=== PATIENT | female | born 1945 | race Caucasian/White ===

== ENCOUNTER 2019-03-25 12:35 | Outpatient (CLI) | payer MEDICARE, SELFPAY ==
--- NOTE | 2019-03-25 13:00 | MR_ITS ---
WS: [id number] MRI LEFT SHOULDER NONCONTRAST TECHNIQUE: Sagittal T2, coronal T1, T2 and proton density imaging. Axial gradient PDE imaging. CLINICAL INFORMATION: shoulder pain COMPARISON: None. FINDINGS: Moderate degenerative arthritis AC joint with mild downsloping of the acromion. Slight subacromial sp urring. Slight impingement on the musculotendinous junction. Tendinopathy in the distal supraspinatus . Tiny insertional tear at the supraspinatus insertion. Small insertional tear at the infraspinatus i nsertion. Tendinopathy in the infraspinatus distally. Normal teres minor. Normal subscapularis. Normal biceps tendon in the bicipital groove. Normal biceps labral anchor. Glenoid labrum appears grossly intact. MR/MR shoulder LT wo con* [id number] IMPRESSION: 1. Moderate degenerative arthritis at the AC joint with edema and a small amou nt of subacromial/subdeltoid fluid. Mild downsloping of the acromion with subac romial spurring. 2. Small insertional tears involving the distal supraspinatus and infraspinatu s with tendinopathy. 3. Rotator cuff is otherwise unremarkable. 4. Normal biceps tendon in the bicipital groove. 5. Glenoid labrum appears grossly normal.
== END 2019-03-25 12:36 | disposition home or self-care (01) ==
LOC: RADSHAW 12:39
PROVIDERS: Family Provider Family Medicine; PCP Family Medicine; Visit Provider Orthopaedic Surgery
DX: M19.012 Primary osteoarthritis, left shoulder (principal); M75.102 Unspecified rotator cuff tear or rupture of left shoulder, not specified as traumatic
CPT/HCPCS: 73221

== ENCOUNTER → 2019-06-20 10:31 | Outpatient (BNVA) | payer MEDICARE, SELFPAY | PROVIDERS: Family Provider Family Medicine; PCP Family Medicine; Referring Provider Family Medicine; Visit Provider Family Medicine | DX: E87.6 Hypokalemia (principal) | CPT/HCPCS: 80048 ==

== ENCOUNTER → 2019-11-28 09:49 | Outpatient (BNVA) | payer MEDICARE, SELFPAY | PROVIDERS: Family Provider Family Medicine; PCP Family Medicine; Visit Provider Family Medicine | DX: Z86.39 Personal history of other endocrine, nutritional and metabolic disease (principal); M75.42 Impingement syndrome of left shoulder; E78.00 Pure hypercholesterolemia, unspecified; Z68.26 Body mass index [BMI] 26.0-26.9, adult | CPT/HCPCS: 80053; 80061; 85025 ==

== ENCOUNTER → 2020-07-10 09:07 | Outpatient (BNVA) | payer MEDICARE, SELFPAY | PROVIDERS: Family Provider Family Medicine; PCP Family Medicine; Visit Provider Family Medicine | DX: M75.102 Unspecified rotator cuff tear or rupture of left shoulder, not specified as traumatic (principal); D72.819 Decreased white blood cell count, unspecified; E87.6 Hypokalemia; I10 Essential (primary) hypertension | CPT/HCPCS: 80048; 85025 ==

== ENCOUNTER → 2021-02-11 09:27 | Outpatient (BNVA) | payer MEDICARE, SELFPAY | PROVIDERS: Family Provider Family Medicine; PCP Family Medicine; Visit Provider Family Medicine | DX: E87.6 Hypokalemia (principal) | CPT/HCPCS: 80048 ==

== ENCOUNTER → 2021-12-02 09:11 | Outpatient (BNVA) | payer MEDICARE, SELFPAY | PROVIDERS: Family Provider Family Medicine; PCP Family Medicine; Visit Provider Family Medicine | DX: I10 Essential (primary) hypertension (principal) | CPT/HCPCS: 80053; 85025 ==

== ENCOUNTER → 2022-03-10 09:42 | Outpatient (BNVA) | payer BC, SELFPAY | PROVIDERS: Family Provider Family Medicine; PCP Family Medicine; Visit Provider Family Medicine | DX: E87.6 Hypokalemia (principal) | CPT/HCPCS: 80053 ==

== ENCOUNTER → 2022-10-06 12:17 | Outpatient (BNVA) | payer BC, SELFPAY | PROVIDERS: Family Provider Family Medicine; PCP Family Medicine; Visit Provider Family Medicine | DX: E87.6 Hypokalemia (principal); E80.6 Other disorders of bilirubin metabolism | CPT/HCPCS: 80053 ==

== ENCOUNTER → 2023-01-28 11:11 | Outpatient (BNVA) | payer BC, SELFPAY | PROVIDERS: Family Provider Family Medicine; PCP Family Medicine; Visit Provider Family Medicine | DX: M19.90 Unspecified osteoarthritis, unspecified site (principal); E87.6 Hypokalemia; R74.8 Abnormal levels of other serum enzymes; M75.102 Unspecified rotator cuff tear or rupture of left shoulder, not specified as traumatic; E80.6 Other disorders of bilirubin metabolism | CPT/HCPCS: 80053 ==

== ENCOUNTER 2023-02-03 09:18 | Outpatient (CLI) | payer BC, SELFPAY ==
--- NOTE | 2023-02-03 09:45 | US_ITS ---
WS: [id number] ULTRASOUND ABDOMEN CLINICAL INFORMATION: progressive increase in bilirubin p year COMPARISON: None. FINDINGS: Liver Size: Normal. Craniocaudal length: 12.6 cm. Echogenicity: Coarse surface nodularity: None. Mass (size and location): None. Bile ducts Intrahepatic ducts: Normal. Common bile duct diameter: 0.3 cm. Gallbladder Prior cholecystectomy. Pancreas Normal as visualized. Spleen Splenomegaly: None. Craniocaudal length: 9.3 cm. Right kidney: Normal. Hydronephrosis: None. Size: 9.2 cm x 5.2 cm x 4.7 cm Left kidney: Normal. Hydronephrosis: None. Size: 9.1 cm x 3.8 cm x 4.4 cm. Abdominal aorta and IVC Visualized portions are normal. Ascites: None. IMPRESSION: 1. Prior cholecystectomy. 2. Mild diffuse fatty infiltration of the liver. 3. No hydronephrosis in either kidney
== END 2023-02-03 09:19 | disposition home or self-care (01) ==
LOC: RAD 09:18
PROVIDERS: Family Provider Family Medicine; PCP Family Medicine; Visit Provider Family Medicine
DX: E80.6 Other disorders of bilirubin metabolism (principal); Z90.49 Acquired absence of other specified parts of digestive tract; K76.0 Fatty (change of) liver, not elsewhere classified
CPT/HCPCS: 76700

== ENCOUNTER → 2023-05-05 08:58 | Outpatient (BNVA) | payer BC, SELFPAY | PROVIDERS: Family Provider Family Medicine; PCP Family Medicine; Visit Provider Family Medicine | DX: E80.6 Other disorders of bilirubin metabolism (principal); I10 Essential (primary) hypertension; M75.42 Impingement syndrome of left shoulder | CPT/HCPCS: 80053; 85025; 86705; 86706; 86709; 86803; 87340 ==

== ENCOUNTER → 2023-09-07 08:55 | Outpatient (BNVA) | payer BC, SELFPAY | PROVIDERS: Family Provider Family Medicine; PCP Family Medicine; Visit Provider Family Medicine | DX: E80.6 Other disorders of bilirubin metabolism (principal); E87.6 Hypokalemia | CPT/HCPCS: 80053 ==

== ENCOUNTER → 2024-03-08 10:09 | Outpatient (BNVA) | payer MEDICARE, MEDICAID, SELFPAY | PROVIDERS: Family Provider Family Medicine; PCP Family Medicine; Visit Provider Family Medicine | DX: I10 Essential (primary) hypertension (principal); E80.6 Other disorders of bilirubin metabolism; E87.6 Hypokalemia | CPT/HCPCS: 80053; 85025 ==

== ENCOUNTER 2024-07-05 11:25 | Outpatient (CLI) | payer MEDICARE, MEDICAID, SELFPAY ==
--- NOTE | 2024-07-05 12:00 | USCV_ITS ---
Chaenl Casillas Age: 79 Gender: F : 1945 Exam Date: 07/05/2024 12:11 Ordering Phys: Anuradha Navas MD Technologist: Exam Location: [facility] [place] Indication: afib sob cp BP: / HR: 84 Rhythm: Sinus Technical Quality: MEASUREMENTS (Male / Female) Normal Values 2D ECHO LV Diastolic Diameter PLAX 4.2 cm 4.2 - 5.9 / 3.9 - 5.3 cm IVS Diastolic Thickness 1.1 cm 0.6 - 1.0 / 0.6 - 0.9 cm IVS Systolic Thickness 1.6 cm LVPW Diastolic Thickness 1.3 cm 0.6 - 1.0 / 0.6 - 0.9 cm LVPW Systolic Thickness 1.3 cm LVOT Diameter 2.0 cm LV Ejection Fraction 2D Teich 69.8 % LV Ejection Fraction MOD 4C 60.8 % LV Ejection Fraction MOD 2C 73.1 % LV Ejection Fraction 2C AL 73.4 % LA Diameter 3.3 cm RA Systolic Volume 4C AL 11.0 ml RA Systolic Volume 4C MOD 10.7 ml Aorta at Sinotubular Diameter 2.6 cm IVC Diameter 2.0 cm M-MODE LA Ao Ratio MM 1.2 AV Cusp Separation MM 2.1 cm DOPPLER AV Peak Velocity 135.0 cm/s LVOT Peak Velocity 98.0 cm/s AV Area Cont Eq vti 2.3 cm squared AV Area Cont Eq pk 2.3 cm squared MV Area PHT 4.7 cm squared TV Peak Velocity 180.0 cm/s TR Peak Velocity 193.0 cm/s TR Peak Gradient 14.9 mmHg TV Peak E Velocity 83.0 cm/s PV Peak Velocity 95.0 cm/s FINDINGS Left Ventricle Left ventricle is normal size. LV systolic function is normal with EF of 60-65%. No regional wall motion abnormalities are seen. Grade 1 diastolic dysfunction. Right Ventricle Normal in size and function Right Atrium Normal in size Left Atrium Normal in size Mitral Valve Structurally normal mitral valve. Mild mitral regurgitation Aortic Valve Structurally normal aortic valve. No significant stenosis or regurgitation. Tricuspid Valve Mild tricuspid regurgitation. Insufficient TR jet to calculate RVSP Pulmonic Valve Not well-visualized Pericardium Normal Aorta Normal in size IVC Not well visualized CONCLUSIONS LV systolic function is normal with EF of 60-65%. Grade 1 diastolic dysfunction. Mild mitral regurgitation Mild tricuspid regurgitation No comparison studies are available. Ran Oneal MD (Electronically Signed) Final Date: 10 Jul 2024 15:09 S
== END 2024-07-05 11:26 | disposition home or self-care (01) ==
PROVIDERS: Family Provider Family Medicine; PCP Family Medicine; Visit Provider Family Medicine
DX: R07.9 Chest pain, unspecified (principal); R94.31 Abnormal electrocardiogram [ECG] [EKG]; I34.0 Nonrheumatic mitral (valve) insufficiency; I07.1 Rheumatic tricuspid insufficiency
CPT/HCPCS: 93306

== ENCOUNTER → 2024-07-14 10:09 | Outpatient (BNVA) | payer MEDICARE, MEDICAID, SELFPAY | PROVIDERS: Family Provider Family Medicine; PCP Family Medicine; Visit Provider Internal Medicine | DX: R07.89 Other chest pain (principal); I10 Essential (primary) hypertension; R07.9 Chest pain, unspecified | CPT/HCPCS: 93005; 99204 ==

== ENCOUNTER 2024-07-22 08:04 | Outpatient (CLI) | payer MEDICARE, SELFPAY ==
--- NOTE | 2024-07-22 08:40 | ECG_ITS ---
[facility] Date: 2024-07-22 Pat Name: Chanel Casillas Department: Room: Gender: Female Communication Spec: : 1945 Requested By: Ran Oneal Order Number: [id number] Blanka MD: CHINMAY LUQUE Interpretive Statements Lung unchanged pre/post procedure; Intraprocedure shortess of breath; Symptoms resoled by discharge NOTE: Please note that this is the electrocardiogram portion of the Lexiscan/Sestamibi stress test. The perfusion scan will be documented separately. DATA: Baseline heart rate was 72 beats per minute. Baseline blood pressure was 133/101 millimeters of mercury. Target heart rate was 139. Maximum heart rate achieved was 100. which was 71% of the predicted target heart rate. Maximum blood pressure was 165/101 millimeters of mercury. The reason for ending the test was completion of the protocol. The patient did not experience any symptoms. ELECTROCARDIOGRAM: BASELINE: Sinus rhythm. Left axis. Right bundle branch block' no arrhythmia noted. EXERCISE: After Lexiscan injection, no ST-T changes suggestive of ischemic noted. No arrhythmia noted. CONCLUSION: Please note due to baseline abnormality of the EKG specificity and sensitivity of the EKG portion of LexiScan MIBI stress test will be low 1. EKG not suggestive of ischemia 2. Lexiscan injection unremarkable. 3. Perfusion scan will be documented separately. Electronically Signed On 07-30-2024 23:22:03 CDT by CHINMAY LUQUE [email or web address]
--- NOTE | 2024-07-22 08:44 | NMCV_ITS ---
NM iris perf SPECT r/s* [id number] Chanel Casillas Age: 79 Gender: F : 1945 Exam Date: 07/22/2024 09:27 Ordering Phys: Ran Oneal M.D ([email or web address]) Technologist: CONSTANCE Macdonald Exam Location: [facility] Indications: CP STRESS TEST Please see separate stress test report in [facility] for full findings IMAGE PROTOCOL Rest/Stress 1 Lexiscan Day Radiopharmaceutical Dose (mCi) Administration Site Administered by Rest: Tc-99m 10.8 IV CONSTANCE Macdonald Sestamibi Stress:Tc-99m 32.4 IV Soraya Haq, STOCK PLAN ADMINISTRATOR Sestamibi Rest: 22-Jul-2024 60 Discovery 630 Stress: 22-Jul-2024 30 Discovery 630 0.4mg Lexiscan. Images obtained in supine and prone position. SPECT RESULTS Technical Quality: Good Raw Data Analysis: Normal Image Corrections: No attenuation or motion correction applied Summed Stress Score: 9 Summed Rest Score: 4 Summed Difference Score: 5 PERFUSION FINDINGS Medium size area of moderate reversibility noted in basal to distal inferior and inferolateral wall suffestive of possible lesion in RCA or dominant Lcx territory. FUNCTIONAL RESULTS (calculated via Gated SPECT) Stress Image LV EF (%): 86 Stress EDV (mL):51 TID: 1 Stress ESV (mL):7 FUNCTIONAL FINDINGS: There is normal left ventricular systolic function. IMPRESSIONS Medium size area of moderate reversibility noted in basal to distal inferior and inferolateral wall suffestive of possible lesion in RCA or dominant Lcx territory. Magi Silva MD (Electronically Signed) Final Date: 29 July 2024 19:08 S
[2024-07-22 08:45] VITALS: BMI 24.7
[2024-07-22] MEDS: regadenoson 0.4 Mg/5 ml Syringe IVP (10:06)
[2024-07-22 10:25] VITALS: BP 125/70; PULSE 81
== END 2024-07-22 08:05 | disposition home or self-care (01) ==
PROVIDERS: PCP Family Medicine; Visit Provider Internal Medicine
DX: R07.9 Chest pain, unspecified (principal); R93.1 Abnormal findings on diagnostic imaging of heart and coronary circulation
CPT/HCPCS: 36415; 78452; 93017; 96374; A9500; J2785

== ENCOUNTER 2024-08-04 07:30 | Outpatient (CLI) | payer MEDICARE, SELFPAY ==
[2024-08-04 08:14] LABS: Basophils % 1.1 %; Eosinophils % 1.1 %; Hematocrit 42.9 % (36-47); Lymphocytes # 1.6 10^3/uL (0.8-4.8); Lymphocytes % 42.5 %; Mean Corpuscular HGB Conc 33.1 g/dL (30-55); Mean Corpuscular Hemoglobin 32.8 pg (27-33); Mean Corpuscular Volume 99.1 fl (85-98); Mean Platelet Volume 10.1 fL (7.4-10.4); Monocytes # 0.3 10^3/uL (0.2-0.9); Monocytes % 8.1 %; Neutrophils # 1.73 10^3/uL (1.8-7.7); Neutrophils % 46.9 %; Nucleated Red Blood Cells % 0 %; Platelet Count 225 10^3/cmm (157-399); Red Blood Count 4.33 10^6/uL (3.85-5.65); Red Cell Distribution Width 12.9 % (12.1-15.1); White Blood Count 3.69 10^3/uL (3.29-11.43)
[2024-08-04 08:31] LABS: INR 0.91 (0.83-1.21); Prothrombin Time (Patient) 12.9 Seconds (12.0-15.1)
[2024-08-04 08:45] LABS: Anion Gap 16.6 (5-19); Blood Urea Nitrogen 16 mg/dL (8-23); Calcium 9.1 mg/dL (8.5-10.5); Carbon Dioxide 25 mmol/L (22-29); Chloride 103 mmol/L (98-107); Glucose 85 mg/dL (65-115); Osmolality Calculated 292 mOsm/kg (285-295); Potassium 3.6 mmol/L (3.5-5.1); Sodium 141 mmol/L (136-145)
== END 2024-08-04 07:31 | disposition home or self-care (01) ==
PROVIDERS: PCP Family Medicine; Visit Provider Internal Medicine
DX: I10 Essential (primary) hypertension (principal); R58 Hemorrhage, not elsewhere classified; R07.9 Chest pain, unspecified
CPT/HCPCS: 36415; 80048; 85025; 85610

== ENCOUNTER 2024-08-05 07:09 | Outpatient (CLI) | payer MEDICARE, SELFPAY ==
[2024-08-05] VITALS (16 sets, daily range): BP systolic 135–188; BP diastolic 66–90; PULSE 59–97; RESP 12–24; TEMP 36.4–36.7; O2SAT 93–94; BMI 25.0
--- NOTE | 2024-08-05 06:00 | XACV_ITS ---
Exam Room: 2 Ht: 160 cm Wt: 64 kg BSA: 1.70 m2 Gender: Female : 1945 Any Known Allergies: Penicillins Exam Priority: Routine Procedure(s): Procedure Description: Diagnostic procedure Procedure Description: PCI procedure Procedure Description: Drug Eluting Coronary Stent Procedure Description: PTCA Procedure Description: Miscellaneous Procedure Description: ACT Procedure Description: Coronary Angiography Diagnostic Cath Status: Elective Diagnostic Findings * INDICATION: Chest pain/abnormal stress test. * Left Main has no significant disease. * Left Anterior Descending has mild luminal irregularities. * Distal Right Coronary Artery: mild 40% stenosis, RUPERTO: 3 flow. * Mid Circumflex: critical 95% stenosis, RUPERTO: 3 flow. * Coronary angiography shows right dominance. PCI Status: Elective PCI Indication: Other Interventional Findings * Procedure detail:We engaged left main artery with XB 3.0 guide catheter. Run-through wire was used to cross the mid left circumflex artery stenosis. 3.0 x 12 mm semicompliant balloon was used to predilated the stenosis. This was followed by placement of 3.5 x 18 mm resolute [place] drug-eluting stent. This was followed by post dilation with 3.75mm x8mm NC balloon. At this time cholangiogram was performed that showed excellent stent extension and no residual stenosis. Patient left the Legal Billing Coordinator in a stable condition. * Mid Circumflex: 95% stenosis treated with a AB TREK 3.00X12 RX BALLOON, MARLA Siu JASON 3.5X18 TATE, and MARLA MCCAULEY EUPHORA RX [id number] BALLOON. 0% residual stenosis, RUPERTO: 3 flow. Conclusions 1. Critical mid left circumflex artery stenosis status post successful vascularization with 1 stent.. 2. Mid Circumflex was treated with a Balloon, Drug Eluting Stent, and Balloon. Recommendations * Dual antiplatelet therapy with aspirin and plavix for atleast 1 year. * High intensity statin therapy. * Outpatient cardiology follow up in 2 weeks. Interventional RX Recommendation: PCI w/o planned CABG Diagnostic RX Recommendation: PCI w/o planned CABG Anticoagulation: Heparin Pressures Phase:Rest AO : 127 / 97 ( 113 ) @ 9:29:00 AM 138 / 71 ( 103 ) @ 9:39:00 AM Clinical Evaluation EBL: 5mL-10mL Procedural Details Procedure Consent Obtained. Pre-Procedure Time Out. Identified patient by full name and date of as verbalized by the patient/guarantor. Does the consent match the physician's order: Yes. Accurate & Complete Informed Consent: Yes. Inpatient/Outpatient History & Physical on Chart: Yes. If H&P is completed, is and addenduem needed: No. Visualize and Verify Site with Patient/Guarantor: N/A. Relevant Radiology Images available: Yes. The risks, benefits, and alternatives of sedation and/or procedure were discussed by physician. The patient agrees to continue. Procedure started. [facility] Clinical Fraility Score: 3: Managing Well. Legal Billing Coordinator Indications: New Onset Angina. Chest Pain Symptom Assessment: Typical Angina Symptoms. Cardiovascular Instability: No. Correct patient, site and procedure confirmed by cath team. PERRLA. Strong, equal hand inspector optical instrument bilaterally. Lungs clear x 5 lobes. IV Site on Arrival: 20 gauge in the left anticubital. IV Fluids: 0.9% NaCl at KVO. 0 mL infused prior to lab tester. Pre Procedural Pulses: bilateral dorsalis pedis was 3+. Pre Procedural Pulses: bilateral posterior tibial was 3+. Pre Procedural Pulses: bilateral radial was 3+. Oxygen started at 2liters/min via nasal canula. right groin was prepped with chloroprep then draped in the usual sterile fashion. right radial was prepped with chloroprep then draped in the usual sterile fashion. Baseline sample Acquired. HR: 74 BPM. Physician notified. Patient's family in the lab tester waiting room. Dr. Oneal will update at the completion of the procedure. Equipment: 6F - Radial. Cardiac Cath Pack. ACBauzaar Manifold Kit Model BT 2000. Heparinized Saline (2 units/mL), 1000 mL bag. Physician arrived. Physician scrubbed in. Immediate Pre-Procedure Time Out. Correct Patient: Yes; Correct Procedure: Yes; Correct Site: Yes; Correct Patient Position: Yes; Correct Supplies: Yes; Dried Flammable Prep: Yes; Blood Products Available: N/A. Lidocaine 1% infiltrated to the right radial. Arterial access obtained. A 5 moldovan TIG catheter in over the exchange J wire. Multiple views taken of left coronary artery. Catheter redirected to the RCA. Multiple views taken of right coronary artery. Catheter removed over the exchange J wire. 6 moldovan XB 3 guide catheter was inserted over the exchange J wire. Runthrough guidewire was advanced through the guide catheter to lesion in the mid Circ. Inflation number : 1 A AB TREK 3.00X12 RX BALLOON was prepped and advanced across the Mid CX , then inflated to 8 BRANDIN for 0:16 seconds. Inflation number: 2 The AB TREK 3.00X12 RX BALLOON was reinflated across the Mid CX, to 8 BRANDIN for 0:16 seconds. Balloon out. Inflation Number : 3 A MARLA Siu JASON 3.5X18 TATE -Lot Number# [id number] Exp. was prepped and advanced across the Mid CX. The stent was deployed at 12 BRANDIN for 0:18 seconds. Stent balloon out over wire. Results checked. Inflation number : 4 A MARLA MCCAULEY EUPHORA RX [id number] BALLOON was prepped and advanced across the Mid CX , then inflated to 12 BRANDIN for 0:21 seconds. Balloon out. ACT drawn. Results out of range HI. Wire out. Guide catheter out over the exchange J wire. Physician scrubbed out. A TR Band was successful obtaining hemostatsis at the Right Radial artery insertion site. Post Procedure: Pulses reassessed and unchanged. PERRLA. Strong, equal hand inspector optical instrument bilaterally. No VTE prophylaxis required. Medication's Wasted: Lidocaine 1% = 18 mL. Medication's Wasted: Nitro = 49.6 mg. Medication's Wasted: Other = Fentanyl 50 mcg. Total IV fluids: 30 mL. Post-op diagnosis: PCI of the Mid CX x 1 TATE. Complications: none. Estimated blood loss: 5mL-10mL. Responsiveness - Normal response to verbal stimuli; alert and oriented, PERRLA. Airway - Unaffected, no intervention required; spontaneous ventilation. Circulation: W/N/L, pulses unchanged. Nausea/Vomiting: No. Procedure completed. Patient transferred by wheelchair to CPRU. Vital chart was stopped. Access Site Site: Right Radial artery Sheath Size: 6 Fr Hemostasis Method: TR Band Hemostasis Success: Successful Procedure Medications Start: 8:20 AM Stop: 8:20 AM Medication: Versed Amount: 1 mg Route: I.V. Start: 8:20 AM Stop: 8:20 AM Medication: Fentanyl Amount: 25 mcg Route: I.V. Start: 8:24 AM Stop: 8:24 AM Medication: Versed Amount: 1 mg Route: I.V. Start: 8:26 AM Stop: 8:26 AM Medication: Nitrogylcerin Amount: 200 mcg Route: I.A. Start: 8:28 AM Stop: 8:28 AM Medication: Heparin Amount: 5000 units Route: I.V. Start: 8:33 AM Stop: 8:33 AM Medication: Heparin Amount: 1000 units Route: I.V. Start: 8:33 AM Stop: 8:33 AM Medication: Versed Amount: 1 mg Route: I.V. Start: 8:44 AM Stop: 8:44 AM Medication: Fentanyl Amount: 25 mcg Route: I.V. Start: 8:46 AM Stop: 8:46 AM Medication: Nitrogylcerin Amount: 200 mcg Route: I.C. Start: 8:50 AM Stop: 8:50 AM Medication: Versed Amount: 1 mg Route: I.V. Start: 9:01 AM Stop: 9:01 AM Medication: Plavix Amount: 600 mg Route: P.O. I, the attending physician, have reviewed and verified all procedure medications. Yes, all medications given per verbal order History/Risk Factors Hypertension: Yes Dyslipidemia: No Peripheral Arterial Disease (PAD): No Myocardial Infarction (OK): No Obesity: No Renal Disease: No Tobacco Use: Never Prior Interventions PCI: No CABG: No Valve Surgery: No Report Signatures Finalized by Ran Oneal MD on 08/20/2024 02:57 PM
[2024-08-05] MEDS: aspirin 325 mg Tablet PO (07:50)
[2024-08-05] MEDS: diphenhydrAMINE 50 mg Capsule PO (07:50)
--- NOTE | 2024-08-05 08:12 | P.HPUD_ITS ---
Surgery/Procedure H&P Update DATE OF PROCEDURE: August 05, 2024 DATE H&P PERFORMED: 07/14/24 H&P UPDATE INFORMATION: I have reviewed H&P completed within last 30 days, I have examined patient prior to procedure and No changes to prior documentation PREOP DIAGNOSIS: Chest pain/abnormal stress test PRIMARY INDICATION FOR PROCEDURE: Chest pain/abnormal stress test PLANNED PROCEDURE: Operation Date: 08/05/24 07:00 Proposed Procedures p Cardiac Catheterization - [facility] w/w/o LV & Coros(Left) - Ran Oneal M.D Possible percutaneous coronary intervention PATIENT REASSESSED PRIOR TO SEDATION, WITH NO CHANGE NOTED: Yes PHYSICAL EXAM: alert, oriented x 3, clear to auscultation bilaterally and regular rate & rhythm AIRWAY EVAL/ANESTHESIA PLAN: normal airway, ASA III, Local Anesthesia, Risks, benefits & alternatives of sedation and/or procedure discussed and Patient agrees to continue as planned ADDITIONAL INFORMATION: Moderate sedation
--- NOTE | 2024-08-05 09:00 | PM.PROC ---
Procedure Note: Date of procedure: 08/05/24 Pre-procedure diagnosis: Chest pain/abnormal stress test Post-procedure diagnosis: other (Severe mid left circumflex artery stenosis s/p PCI with 1 stent) Procedure: Left main artery is patent. LAD has mild luminal irregularities. Mid left circumflex artery has severe 90-95% stenosis s/p PCI with 1 stent. RCA has distal vessel 40-50% stenosis. Dual antiplatelet therapy with aspirin and plavix for atleast 1 year Statin therapy. Estimated blood loss (mL): 10 Complications: None Condition: stable Disposition: floor Coding Level of Care Code Acute Code for Frankie Harper
--- NOTE | 2024-08-05 09:12 | PC.NURSE ---
Patient received to 102 s/p [facility] with right radial access. TR band in place. No s/s of bleeding or hematoma formation observed. Right extremity warm, pink with palpable pulse. Instructed patient on site care with restrictions. Patient verbalized complete understanding. Family at bedside.
--- NOTE | 2024-08-05 11:21 | PC.NURSE ---
Initiated TR band removal at 0945 removing 1-2ml of air every 15-20min until all air removed at this time. TR band removed. No s/s of bleeding or hematoma formation observed. Covered site with 2x2 and coban. Instructed patient on site care with restrictions. Patient verbalized complete understanding.
[2024-08-06 00:46] VITALS: BP 144/76; PULSE 70; RESP 23; TEMP 36.8; O2SAT 93
[2024-08-06 03:33] VITALS: BP 147/72; PULSE 73; RESP 28; TEMP 36.8; O2SAT 92
[2024-08-06 04:45] LABS: Basophils % 0.5 %; Eosinophils # 0.1 10^3/uL (0.0-0.8); Eosinophils % 2.1 %; Lymphocytes # 1.8 10^3/uL (0.8-4.8); Lymphocytes % 31.1 %; Mean Corpuscular HGB Conc 33.6 g/dL (30-55); Mean Corpuscular Hemoglobin 33.1 pg (27-33); Mean Corpuscular Volume 98.5 fl (85-98); Mean Platelet Volume 10.2 fL (7.4-10.4); Monocytes # 0.4 10^3/uL (0.2-0.9); Monocytes % 7.8 %; Neutrophils % 58.3 %; Nucleated Red Blood Cells % 0 %; Platelet Count 219 10^3/cmm (157-399); Red Blood Count 3.96 10^6/uL (3.85-5.65); Red Cell Distribution Width 13.2 % (12.1-15.1); White Blood Count 5.66 10^3/uL (3.29-11.43)
[2024-08-06 04:47] LABS: Anion Gap 14.5 (5-19); Blood Urea Nitrogen 17 mg/dL (8-23); Calcium 8.9 mg/dL (8.5-10.5); Carbon Dioxide 25 mmol/L (22-29); Chloride 105 mmol/L (98-107); Glucose 89 mg/dL (65-115); Osmolality Calculated 293 mOsm/kg (285-295); Potassium 3.5 mmol/L (3.5-5.1); Sodium 141 mmol/L (136-145)
--- NOTE | 2024-08-06 07:45 | PC.NURSE ---
Dressing to right wrist remains c,d,i without s/s of bleeding or hematoma formation observed. Reinforced instruction on site care with restrictions. Patient verbalized complete understanding. Patients stated, I am ready to go home. . Patient denies pain or needs. No distress observed.
[2024-08-06 07:57] VITALS: BP 137/75; PULSE 70; RESP 22; TEMP 36.8; O2SAT 94
[2024-08-06] MEDS: clopidogrel 75 mg Tablet PO (08:03)
[2024-08-06] MEDS: aspirin 81 mg EC Tablet PO (08:03)
--- NOTE | 2024-08-06 08:30 | PM.DCS ---
Discharge Providers Date of Admission: August 05, 2024 Date of Discharge: August 06, 2024 Attending Provider at Admission: Ran Oneal MD Attending Provider at Discharge: Ran Oneal M.D Primary Care Provider: Anuradha Navas MD Reason for Visit Reason for Visit: R94.39 Brief History: 79-year-old woman with chest pain and abnormal stress test here for coronary angiogram. Hospital Course Hospital Course Patient was found to have critical mid left circumflex artery stenosis status post successful revascularization with 1 stent. He was observed overnight and discharged home in stable condition on dual antiplatelet therapy. No access site complications. Physical Exam Narrative: GENERAL: Patient is alert, awake and oriented x3. [] NECK: No jugular vein distension. [] HEENT: No cyanosis. No icterus. No pallor. [] HEART: Regular S1 and S2. No murmur, rub or gallop. [] LUNGS: Clear to auscultate bilaterally. [] CENTRAL NERVOUS SYSTEM: Grossly nonfocal. [] EXTREMITIES: Lower extremities with 1+ edema bilaterally. Discharge Data Studies Completed and Pending Pending at discharge Category Date Time Status AIRPLANE NAVIGATOR request for service Routine Exams 08/05/24 06:00 Taken Laboratory Results WBC 5.66 10^3/uL (3.29-11.43) 08/06/24 03:35 RBC 3.96 10^6/uL (3.85-5.65) 08/06/24 03:35 Hgb 13.10 g/dL (11.27-16.99) 08/06/24 03:35 Hct 39.0 % (36-47) 08/06/24 03:35 MCV 98.5 fl (85-98) H 08/06/24 03:35 MCH 33.1 pg (27-33) H 08/06/24 03:35 MCHC 33.6 g/dL (30-55) 08/06/24 03:35 RDW 13.2 % (12.1-15.1) 08/06/24 03:35 Plt Count 219 10^3/cmm (157-399) 08/06/24 03:35 MPV 10.2 fL (7.4-10.4) 08/06/24 03:35 Neut % (Auto) 58.3 % 08/06/24 03:35 Lymph % (Auto) 31.1 % 08/06/24 03:35 [place] % (Auto) 7.8 % 08/06/24 03:35 Eos % (Auto) 2.1 % 08/06/24 03:35 Baso % (Auto) 0.5 % 08/06/24 03:35 Neut # (Auto) 3.30 10^3/uL (1.8-7.7) 08/06/24 03:35 Lymph # (Auto) 1.8 10^3/uL (0.8-4.8) 08/06/24 03:35 [place] # (Auto) 0.4 10^3/uL (0.2-0.9) 08/06/24 03:35 Eos # (Auto) 0.1 10^3/uL (0.0-0.8) 08/06/24 03:35 Baso # (Auto) 0.0 10^3/uL (0.0-0.1) 08/06/24 03:35 Nucleated RBC % (auto) 0 % 08/06/24 03:35 Nucleated RBCs # 0.0 /100WBC 08/06/24 03:35 Sodium 141 mmol/L (136-145) 08/06/24 03:35 Potassium 3.5 mmol/L (3.5-5.1) 08/06/24 03:35 Chloride 105 mmol/L (98-107) 08/06/24 03:35 Carbon Dioxide 25 mmol/L (22-29) 08/06/24 03:35 Anion Gap 14.5 (5-19) 08/06/24 03:35 BUN 17 mg/dL (8-23) 08/06/24 03:35 Creatinine 0.8 mg/dL (0.5-0.9) 08/06/24 03:35 GFR Calculation Not Reportable 08/06/24 03:35 Glucose 89 mg/dL (65-115) 08/06/24 03:35 Calculated Osmolality 293 mOsm/kg (285-295) 08/06/24 03:35 Calcium 8.9 mg/dL (8.5-10.5) 08/06/24 03:35 Vitals Last Vital Signs Temp 98.3 F 08/06/24 07:57 Pulse 70 08/06/24 07:57 Resp 22 H 08/06/24 07:57 BP 137/75 08/06/24 07:57 Pulse Ox 94 08/06/24 07:57 O2 Del Method Room Air 08/06/24 07:57 Discharge Plan Discharge Patient Disposition: Home Prescriptions: New clopidogrel 75 mg Tablet 75 mg PO DAILY Qty: 90 3RF aspirin 81 mg Tablet,Delayed Release (Dr/Ec) 81 mg PO DAILY Qty: 90 3RF atorvastatin [Lipitor] 40 mg tablet 40 mg PO DAILY Qty: 90 3RF Continued omega-3 fatty acids [Fish Oil Concentrate] 1,000 mg capsule 1,000 mg PO QDAY triamcinolone acetonide 40 mg/mL suspension 40 mg intra-articular ONCE Qty: 1 0RF triamcinolone acetonide 40 mg/mL suspension 40 mg intra-articular ONCE Qty: 1 0RF nitroglycerin 0.4 mg tablet, sublingual 0.4 mg sublingual Q5M PRN (Reason: chest pain) Qty: 30 0RF Rx Instructions: do not exceed 3 doses per episode triamterene-hydrochlorothiazid 37.5-25 mg capsule 1 cap PO DAILY potassium chloride 20 mEq tablet,ER particles/crystals 20 meq PO BID Discontinued ibuprofen 600 mg tablet 600 mg PO TID PRN (Reason: Mild Pain (Scale Score 1-4)) Discharge Orders: Discharge Order (Routine); Ordered 08/06/24 Ordered By: Ran Oneal Referrals: Anuradha Navas MD [Primary Care Provider, Family Practice] Referral Note: We have notified your physician's clinic of the need for a follow-up appointment to be scheduled. If you have not heard from them within the next 2 business days, please call them directly. Corinne Pruitt FNP [Nurse Practitioner, Cardiology] - 7-10 days Referral Note: We have notified your physician's clinic of the need for a follow-up appointment to be scheduled. If you have not heard from them within the next 2 business days, please call them directly. Diet: Cardiac Patient Instructions: Aspirin (By mouth), Clopidogrel (By mouth) (Plavix), Coronary Artery Disease (DC), Cardiac Rehabilitation (DC), Coronary Intravascular Stent Placement (DC), Left Heart Catheterization (DC), Post Angiogram Home Care Instructions Print Language: [place] Discharge Date/Time: 08/06/24 09:32 Discharge Attestations Time Spent in Discharge Care*: less than 30 min Quality Metrics Clinical Quality Measures [ No reported AMI, CVA or VTE this stay] Coding Level of Care Code Acute Code for Chg Fwd
--- NOTE | 2024-08-06 09:27 | PC.NURSE ---
patient discharged to home. Instruction provided regarding follow up needs, new medications with changes and post [facility] site care and restrictions. Patient verbalized complete understanding. Right wrist incision currently open to air. Mild bruising noted. No s/s of active bleeding or hematoma formation. New medications transmitted to [facility]. Patient denies pain or needs. Patient taken by wheelchair to private vehicle. No distress observed.
== END 2024-08-06 09:32 | disposition home or self-care (01) ==
LOC: CCL 09:19 → CSU 09:28
PROVIDERS: PCP Family Medicine; Visit Provider Internal Medicine
DX: I25.10 Atherosclerotic heart disease of native coronary artery without angina pectoris (principal); I10 Essential (primary) hypertension
CPT/HCPCS: 36415; 80048; 85025; 85347; 93454; 96376; 99152; 99153; C1725; C1769; C1874; C1887; C1894; C9600; J1644; J2250; J3010; J3490; J7030; J9999; Q0163; Q9967

== ENCOUNTER → 2024-08-18 08:04 | Outpatient (BNVA) | payer MEDICARE, SELFPAY | PROVIDERS: PCP Family Medicine; Visit Provider Nurse Practitioner Family | DX: I25.10 Atherosclerotic heart disease of native coronary artery without angina pectoris (principal); Z09 Encounter for follow-up examination after completed treatment for conditions other than malignant neoplasm; E80.6 Other disorders of bilirubin metabolism; Z79.02 Long term (current) use of antithrombotics/antiplatelets; Z79.82 Long term (current) use of aspirin; I10 Essential (primary) hypertension | CPT/HCPCS: 36415; 80048; 82247; 99214 ==

== ENCOUNTER → 2024-11-14 09:15 | Outpatient (BNVA) | payer MEDICARE, MEDICAID, SELFPAY | PROVIDERS: PCP Family Medicine; Visit Provider Family Medicine | DX: I10 Essential (primary) hypertension (principal); E80.6 Other disorders of bilirubin metabolism; E78.00 Pure hypercholesterolemia, unspecified | CPT/HCPCS: 80053; 80061 ==